=== PATIENT | male | born 1985 | race Caucasian/White ===

== ENCOUNTER 2018-05-21 18:09 | Emergency (ER) | payer MEDICAID ==
[~2018-05-21] VITALS: Ht 165.1 cm; Wt 76.0 kg
[2018-05-21 18:38] VITALS: BP 131/86
[2018-05-21] MEDS ORDERED: HYDROcodone/APAP 5/325 TABLET PO ONE (19:00)
[2018-05-21] MEDS ORDERED: IBUPROFEN 200 MG TABLET PO ONE (19:00)
[2018-05-21] MEDS ORDERED: HYDROcodone/APAP 5/325 TABLET ONE (19:03)
[2018-05-21] MEDS ORDERED: IBUPROFEN 200 MG TABLET ONE (19:03)
== END 2018-05-21 19:16 | disposition home or self-care (01) ==
LOC: ED 18:56
DX: K04.7 Periapical abscess without sinus (principal); K02.9 Dental caries, unspecified; F17.200 Nicotine dependence, unspecified, uncomplicated
CPT/HCPCS: 99283

== ENCOUNTER 2018-06-24 10:41 | Emergency (ER) | payer MEDICAID ==
[~2018-06-24] VITALS: Ht 165.1 cm; Wt 82.0 kg
[2018-06-24 10:44] VITALS: BP 130/84
== END 2018-06-24 11:57 | disposition home or self-care (01) ==
LOC: ED 11:36
DX: K08.89 Other specified disorders of teeth and supporting structures (principal)
CPT/HCPCS: 99283

== ENCOUNTER 2018-11-29 23:12 | Emergency (ER) | payer MEDICAID ==
[~2018-11-29] VITALS: Ht 165.1 cm; Wt 80.5 kg
[2018-11-29 23:16] VITALS: BP 134/86
[2018-11-30] MEDS ORDERED: KETOROLAC 30 MG/1 ML ONE (00:28)
[2018-11-30] MEDS ORDERED: KETOROLAC 30 MG/1 ML IM ONE (00:30)
--- NOTE | 2018-11-30 00:31 | NUR ---
PT MEDICATED PER EMAR. 5 RIGHTS ADDRESSED.
--- NOTE | 2018-11-30 00:32 | NUR ---
Patient/Caregiver given discharge instructions and they have confirmed that they understand the instructions. Patient ambulatory with steady gait.
== END 2018-11-30 00:33 | disposition home or self-care (01) ==
LOC: ED 11-30 00:31
DX: B02.9 Zoster without complications (principal); R07.89 Other chest pain
CPT/HCPCS: 71101; 96372; 99283; J1885

== ENCOUNTER 2020-05-06 17:18 | Emergency (ER) | payer MEDICAID ==
[~2020-05-06] VITALS: Ht 165.1 cm; Wt 68.2 kg
[2020-05-06 17:23] VITALS: BP 122/61
== END 2020-05-06 19:16 | disposition home or self-care (01) ==
LOC: ED 18:45
DX: S20.212A Contusion of left front wall of thorax, initial encounter (principal); S50.811A Abrasion of right forearm, initial encounter; R07.89 Other chest pain; W22.8XXA Striking against or struck by other objects, initial encounter; Y93.89 Activity, other specified; Y92.488 Other paved roadways as the place of occurrence of the external cause; Y99.8 Other external cause status
CPT/HCPCS: 99283